=== PATIENT | female | born 1945 | race Caucasian/White ===

== ENCOUNTER 2020-02-01 09:41 | Outpatient (CLI) | payer MEDICARE, SELFPAY ==
--- NOTE | ~2020-02-01 | XR_ITS ---
EXAMINATION: XR knee LT 3V DATE: 02/01/2020 10:06 INDICATION: Left knee pain. TECHNIQUE: 3 views of left knee were obtained. COMPARISON: None. FINDINGS: Bone alignment is normal. No fracture. There is mild osteoarthritis of medial and patellofe moral compartments. There is a small knee joint effusion. IMPRESSION: 1. Mild left knee osteoarthritis. 2. Small left knee joint effusion. Reviewed, dictated and finalized at location B. MIXER
== END 2020-02-01 09:42 | disposition home or self-care (01) ==
PROVIDERS: PCP Family Medicine; Visit Provider Family Medicine
DX: M25.562 Pain in left knee (principal)
CPT/HCPCS: 73562

== ENCOUNTER 2020-02-14 10:36 | Outpatient (CLI) | payer MEDICARE, SELFPAY ==
--- NOTE | ~2020-02-14 | CT_ITS ---
EXAMINATION: CT brain wo con EXAM DATE: 02/14/2020 10:55 INDICATION: Generalized headache, unsteady gait, confusion. Lack of coordination. TECHNIQUE: Spiral CT of the head was performed without contrast. Axial, coronal and sagittal images were reviewed. The dose-length product (DLP) for this examination was 605.33 mGy-cm. The exposure w as tailored according to patient size, and iterative reconstruction (ASIR) was used as additional dos e reduction technique. There is no prior study for comparison. FINDINGS: There is no acute intraparenchymal hemorrhage. No evidence of intraparenchymal brain mass lesion. No evidence of acute infarction. There is no mass effect or midline shift. The ventricles are normal in size. There are no extra-axial collections. There are no acute calvarial fractures. P sharda has had bilateral ocular lens surgery. Soft tissue is unremarkable. The visualized sinuses a nd mastoid air cells are well aerated. IMPRESSION: 1. No acute intracranial findings. Reviewed, dictated and finalized at location A. INE RUG CLEANER
== END 2020-02-14 10:37 | disposition home or self-care (01) ==
PROVIDERS: PCP Family Medicine; Visit Provider Family Medicine
DX: R51.9 Headache, unspecified (principal)
CPT/HCPCS: 70450

== ENCOUNTER 2020-11-05 10:00 | Outpatient (CLI) | payer MEDICARE, SELFPAY ==
--- NOTE | ~2020-11-05 | MM_ITS ---
EXAMINATION: MM screening arlette BI w marilin HISTORY: Screening TECHNIQUE: Craniocaudal and mediolateral oblique 3-D tomosynthesis images were obtained and synthetic 2-D images were generated. CAD analysis was submitted and interpreted. COMPARISON: Breast composed of scattered areas of fibroglandular density BREAST PARENCHYMAL COMPOSITION: Breast composed of scattered areas of fibroglandular density . FINDINGS: There is no evidence of suspicious mass, calcification, or architectural distortion to sugg est malignancy in either breast. There has been no suspicious interval change. IMPRESSION: 1. No mammographic evidence of malignancy. 2. Recommend routine screening mammography in one year. BI-RADS Category 1: Negative Reviewed, dictated and finalized at location A.
== END 2020-11-05 10:01 | disposition home or self-care (01) ==
LOC: CHSIMG 10:01
PROVIDERS: PCP Family Medicine; Visit Provider Family Medicine
DX: Z12.31 Encounter for screening mammogram for malignant neoplasm of breast (principal)
CPT/HCPCS: 77063; 77067

== ENCOUNTER 2020-11-07 14:26 | Outpatient (CLI) | payer MEDICARE, SELFPAY ==
--- NOTE | ~2020-11-07 | US_ITS ---
US retroperitoneal comp DATE: 11/07/2020 14:52 INDICATION: Urinary retention TECHNIQUE: Real-time imaging of kidneys and urinary bladder COMPARISON: None FINDINGS: Right kidney measures 9.6 cm length, left kidney 9.2 cm. Right renal cyst measures 3.1 x 2.8 x 3.2 cm. Left renal cyst measures 0.8 cm. There is diffuse bilateral renal cortical thinning and hyperechogenicity consistent with bilateral ch ronic renal disease and atrophy. No hydronephrosis or urinary tract obstruction is evident. The urinary bladder is relatively evacuated. IMPRESSION: Bilateral chronic renal disease/atrophy No hydronephrosis Bilateral renal cysts Reviewed, dictated and finalized at Location A. Reviewed, dictated and finalized at location A.
== END 2020-11-07 14:27 | disposition home or self-care (01) ==
LOC: CHSIMG 14:27
PROVIDERS: PCP Family Medicine; Visit Provider Nurse Practitioner Family
DX: R33.9 Retention of urine, unspecified (principal)
CPT/HCPCS: 76770

== ENCOUNTER 2021-01-14 08:26 | Outpatient (CLI) | payer MEDICARE, SELFPAY ==
--- NOTE | ~2021-01-14 | DEXA_ITS ---
Bone Density Report Name: Denae Motta Age: 75 Sex: Female Ethnicity: White Date of : 1945 Indication: postmenopausal; screening for osteoporosis; height loss; hysterectomy; Referring Provider: Erick, Alexandra Francisco Study: Bone densitometry was performed. Exam Date: January 14, 2021 Accession number: [id number] Bone Density: Region BMD T-score Z-score Classification AP Spine(L1-L4) 1.145 0.9 3.2 Normal Femoral Neck (Left) 0.714 -1.2 0.8 Osteopenia Total Hip (Left) 0.936 0.0 1.7 Normal Femoral Neck (Right) 0.671 -1.6 0.4 Osteopenia Total Hip (Right) 0.917 -0.2 1.5 Normal Femoral Neck Mean 0.693 -1.4 0.6 Osteopenia Total Hip Mean 0.927 -0.1 1.6 Normal World Health Organization criteria for BMD impression classify patients as: Normal (T-score at or above -1.0), Osteopenia (T-score between -1.0 and -2.5), or Osteoporosis (T-score at or below -2.5). 10-year Fracture Risk(1): Major Osteoporotic Fracture 11% Hip Fracture 2.0% Reported Risk Factors: [place] (), Neck BMD=0.671, BMI=32.9 (1) FRAX(R) Version 3.08. Fracture probability calculated for an untreated patient. Fracture probability may be lower if the patient has received treatment. Clinical Information Provided by Patient: Has the following medical conditions: Hysterectomy Patient maximum height was 63 Menopause Age: 41 No regular weight bearing exercise Drinks caffeinated beverages Onset of menses at age 14 Number of children 2 Impression: The patient has low bone mass, based on the Right Femoral Neck T-score. Discussion: BONE DENSITY IS LOW AT ONE OR MORE SKELETAL SITES. This patient's lowest T-score is low at one or more skeletal sites. It meets the World Health Organization's (WHO) criteria for ?low bone mass? (T-score between -1.0 and -2.5). The patient's 10-year risk of fracture as calculated by FRAX is less than the threshold where pharmacological therapy is recommended by the National Osteoporosis Foundation (NOF). However, all treatment decisions require clinical judgment and consideration of individual patient factors, including patient preferences, comorbidities, previous drug use, risk factors not captured in the FRAX model (e.g., frailty, falls, vitamin D deficiency, increased bone turnover, interval significant decline in bone density) and possible under or overestimation of fracture risk by FRAX. The patient should follow a healthful lifestyle (good nutrition with adequate calcium and vitamin D, and appropriate weight-bearing exercise). Follow-Up: Consider repeating this study in 2 to 3 years to reassess this patient's status, or sooner if there is some new clinical indication. Reported by: Dr. Zaire Valera on 01/14/2021 9:25:00 AM.
--- NOTE | ~2021-01-14 | US_ITS ---
EXAMINATION: US carotid duplex BI DATE: 01/14/2021 09:18 INDICATION: Calcified carotid atheroma TECHNIQUE: Grayscale, color Doppler, and pulsed Doppler images of the cervical carotid arteries were obtained. The degree of vessel stenosis is placed in one of the following categories: normal, <50%, 5 0-69%, >=70% but less than near-occlusion, near-occlusion, or total occlusion. Note that percent sten osis relative to normal distal artery lumen diameter is indirectly measured from velocity measurement s as described by Jian, et al. Radiology 2003; 229:340-346. COMPARISON: None. FINDINGS: RIGHT: The right common carotid artery (CCA) peak systolic velocity (PSV) is 100 cm/s. The right internal ca rotid artery (ICA) PSV is 107 cm/s. The right ICA end-diastolic velocity (EDV) is 25 cm/s. The right ICA/CCA PSV ratio is 1.1. Grayscale and color Doppler images yield an estimate of <50% diameter reduc tion from plaque in the ICA. The external carotid artery (ECA) PSV is 108 cm/s. There is antegrade fl ow in the right vertebral artery. LEFT: The left CCA PSV is 124 cm/s. The left ICA PSV is 77 cm/s. The left ICA EDV is 14 cm/s. The left ICA/ CCA PSV ratio is 0.6. Grayscale and color Doppler images yield an estimate of <50% diameter reduction from plaque in the ICA. The ECA PSV is 92 cm/s. There is antegrade flow in the left vertebral artery . IMPRESSION: 1. <50% stenosis in the right internal carotid artery. 2. <50% stenosis in the left internal carotid artery. Reviewed, dictated and finalized at location A. BEEF CATTLE FARMER
--- NOTE | ~2021-01-14 | US_ITS ---
EXAMINATION: US arterial ankle brachial ind DATE: 01/14/2021 09:17 INDICATION: Peripheral arterial occlusive disease. Hyperlipidemia and hypertension. TECHNIQUE: Segmental pressures and plethysmographic and Doppler waveforms of the brachial and lower e xtremity arteries were obtained. COMPARISON: None. FINDINGS: Right and left brachial artery pressures of 144 mm Hg and 141 mm Hg, respectively, are concordant (no rmal difference <= 30 mmHg). The right ankle-brachial index (JOSÉ ANTONIO) is 0.90 (normal >= 0.9-1.0). The right great toe-brachial index (TBI) is 0.80 (normal >= 0.65). Arterial Doppler waveforms are triphasic at both the right posterior tibial and dorsalis pedis arteries. The left JOSÉ ANTONIO is 0.97. The left TBI is 0.76. Arterial Doppler waveforms are triphasic at both the left posterior tibial and dorsalis pedis arteries. IMPRESSION: 1. Likely minimal arterial occlusive disease to the bilateral lower limbs with borderline left and ri ght ABIs but normal TBIs. Reviewed, dictated and finalized at location A. UTE RESOLUTION SPECIALIST IMPRESSION: 1. Likely minimal arterial occlusive disease to the bilateral lower limbs with borderline left and right ABIs but normal TBIs.
== END 2021-01-14 08:27 | disposition home or self-care (01) ==
LOC: CHSIMG 08:27
PROVIDERS: PCP Family Medicine; Visit Provider Nurse Practitioner Family
DX: I73.9 Peripheral vascular disease, unspecified (principal); F17.200 Nicotine dependence, unspecified, uncomplicated; I65.29 Occlusion and stenosis of unspecified carotid artery; Z78.0 Asymptomatic menopausal state
CPT/HCPCS: 77080; 93880; 93922

== ENCOUNTER 2021-01-16 11:56 | Outpatient (CLI) | payer MEDICARE, SELFPAY ==
[2021-01-16 13:23] LABS: Vitamin B12 365 pg/mL (193-986)
[2021-01-18 15:18] LABS: RPR Screen Non-Reactive (Non-Reactive)
[2021-01-22 08:47] LABS: Methylmalonic Acid 427 nmol/L (87-318)
== END 2021-01-16 11:57 | disposition home or self-care (01) ==
LOC: CHSLAB 11:58
PROVIDERS: PCP Family Medicine; Visit Provider Family Medicine
DX: R41.3 Other amnesia (principal)
CPT/HCPCS: 36415; 82607; 83921; 86592

== ENCOUNTER 2021-02-03 10:28 | Outpatient (CLI) | payer MEDICARE, SELFPAY ==
--- NOTE | ~2021-02-03 | MR_ITS ---
EXAMINATION: MR brain/brain stem wo con EXAM DATE: 02/03/2021 11:35 INDICATION: increasing memory loss/amnesia memory issues x1yr, NKI TECHNIQUE: Magnetic resonance imaging (MRI) of the brain/brain stem obtained without contrast. Sagitt al T1, axial diffusion, gradient echo (T2*), T1, T2, FLAIR sequences obtained. There is no prior st udy for comparison. FINDINGS: Minimal microangiopathy. There are no areas of restricted diffusion to suggest acute infarc tion. There is no acute hemorrhage seen on the T2*, a hemosiderin sensitive sequence. No intraparen chymal brain mass. The ventricles are normal in size. There are no extra-axial collections. Flow vo ids are seen in the cerebral arteries on the T2-weighted sequences consistent with their expected pat ency. Patient has had bilateral ocular lens surgery. Soft tissue is unremarkable. IMPRESSION: Minimal microangiopathy. Reviewed, dictated and finalized at location B. ATTENDANT IMPRESSION: Minimal microangiopathy.
== END 2021-02-03 10:29 | disposition home or self-care (01) ==
LOC: CHSIMG 10:29
PROVIDERS: PCP Family Medicine; Visit Provider Family Medicine
DX: R41.3 Other amnesia (principal)
CPT/HCPCS: 70551